=== PATIENT | female | born 1995 | race American Indian/Alaskan Native ===

== ENCOUNTER 2018-06-01 18:40 | Outpatient (CLI) | payer MEDICAID ==
[2018-06-01 19:21] VITALS: BP 110/66
[2018-06-01 21:18] LABS: Bacteria,Urine 1+ /HPF (Negative); Bilirubin,Urine NEG (Negative); Blood,Urine NEG (Negative); Color,Urine Yellow (Yellow); Protein,Urine <15 mg/dL mg/dL (Negative); Urobilinogen,Urine < 2.0 mg/dL (<2.0)
== END 2018-06-01 22:10 | disposition home or self-care (01) ==
LOC: TRG 18:40
PROVIDERS: ATTEND Obstetrics & Gynecology
DX: O47.03 False labor before 37 completed weeks of gestation, third trimester (principal); Z3A.33 33 weeks gestation of pregnancy; Z91.010 Allergy to peanuts; Z87.891 Personal history of nicotine dependence
CPT/HCPCS: 81001

== ENCOUNTER 2018-06-12 23:46 | Outpatient (CLI) | payer MEDICAID ==
[2018-06-13 00:05] VITALS: BP 117/63
[2018-06-13] MEDS ORDERED: LACTATED RINGERS 1,000 ML IV ONE (01:57)
--- NOTE | 2018-06-13 03:38 | Ultrasound Report ---
FINAL REPORT PROCEDURE: US OB LIMITED TECHNIQUE: Real-time limited sonographic examination was performed for evaluation of size, position, heartbeat, fluid volume for each fetus with image documentation (1 or more fetuses). CPT 69360 HISTORY: JESS COMPARISON: No prior studies are available for comparison. FINDINGS: Amniotic fluid index is 14.3 centimeters which is within normal limits. Fetus is in a cephalic presentation. The placenta is anterior and grade 1. There is no previa. heart rate is 132 beats per minute. IMPRESSION: Amniotic fluid index is 14.3 centimeters which is within normal limits.
== END 2018-06-13 03:32 | disposition home or self-care (01) ==
LOC: TRG 23:46
PROVIDERS: ATTEND Obstetrics & Gynecology
DX: O47.03 False labor before 37 completed weeks of gestation, third trimester (principal); Z3A.34 34 weeks gestation of pregnancy; Z87.891 Personal history of nicotine dependence
CPT/HCPCS: 59025; 76815; 96360; J7120